=== PATIENT | male | born 1990 | race Hispanic/Latino ===

== ENCOUNTER 2019-09-21 21:36 | Inpatient (IN) | payer BC, OTHER ==
[~2019-09-21] VITALS: Ht 190.5 cm; Wt 151.5 kg
[2019-09-21] MEDS: SODIUM CHLORIDE 0.9% 1000ML 1,000 ML IV SCH ×4 (02:05→23:30)
[2019-09-21] MEDS ORDERED: KETOROLAC TROMETHAMINE 30 MG/ML VIAL IV STA (21:58)
--- NOTE | 2019-09-21 22:06 | Emergency Department Note ---
History of Present Illnes History of Present Illness Chief Complaint: left upper quadrant abd pain sudden onset History of Present Illness This is a 29 year old male . 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 Any updates have been documented here. Past Medical History Recent Fever: No Clinical Suspicion of Infectio: No New/Unexplained Change in Ment: No Past Medical History: Kidney Stones (6 years ago. hasn't had a proper doctor v rachel in several years) Other Surgery: retinal detachment repaired bilaterally Social History Smoking Cessation: Current every day smoker Counseling Performed: Yes Alcohol Use: Occasional Any Illegal Drug Use: No TB Exposure/Symptoms: No Physically hurt or threatened: No Other Any Pre-Existing Lines (PICC,: No Review of Systems ROS Narrative Unable to obtain ROS: Unable to obtain due to Review of Systems Constitutional: Reports no symptoms EENTM: Reports no symptoms Cardiovascular: Reports no symptoms Respiratory: Reports no symptoms Gastrointestinal: Reports as per HPI Genitourinary: Reports no symptoms Musculoskeletal: Reports no symptoms Integumentary: Reports no symptoms Neurological: Reports no symptoms Psychological: Reports no symptoms Endocrine: Reports no symptoms Hematological/Lymphatic: Reports no symptoms Review of other systems: All other systems negative Physical Exam Related Data Vital signs reviewed: Yes Physical Exam CONSTITUTIONAL Constitutional: Present well-developed, Present well-nourished, Present obese HENT HENT: Present normocephalic, Present atraumatic EYES Eyes: Reports PERRL, Reports conjunctivae normal, Reports EOM normal, Reports lids normal NECK Neck: Present ROM normal, Present supple PULMONARY Pulmonary: Present effort normal, Present breath sounds normal CARDIOVASCULAR Cardiovascular: Present regular rhythm, Present heart sounds normal, Present intact distal pulses, Present capillary refill normal, Present tachycardia GASTROINTESTINAL Abdominal: Present soft, Present bowel sounds normal, Present tender (mild luq to deep palpation pt obese difficult to obtain good pe on abdomen) GENITOURINARY SKIN Skin: Present warm, Present dry MUSCULOSKELETAL Musculoskeletal: Present ROM normal, Present edema NEUROLOGICAL Neurological: Present alert, Present oriented x 3, Present DTRs normal, Present no gross motor or sensory deficits PSYCHOLOGICAL Psychological: Present mood/affect normal, Present behavior normal, Present thought content normal, Present judgement normal Results Laboratory Laboratory glucose 315 k 5.5 but mod hemolysisi bicarb 27 normal. CBC WBC 20.5 elevated H/H 16/51 elevaed Lab results reviewed: Yes Laboratory comments ua glucose 500 mg/dl trace ketones protein 100mg/dl. nitrite and leukocyte esterase negative. Lactic acid 2.48 elevated repeat k 4.6 Imaging Imaging results reviewed: Yes Impressions 7 mm stone prox left urether with mod /severe hydroureteronephrosis edematous left kidney Assessment & Plan Medical Decision Making MDM wbc 20 with elevated lactate obsructing kidney stone prob pyleonehritis. admit for antibiotics and hydration . Insulin will be given to correct hyperglycemia. Case discussed in detail with both Dr. Gaston Bright and Dr Donte Ann including lab results and ct report Assessment & Plan Final Impression: (1) Pyelonephritis (2) Urethra, calculus Depart Disposition: ADMITTED QIAN QUINONES MD Sep 21, 2019 22:06
[2019-09-21] MEDS ORDERED: CEFEPIME 1GM/NS 0.9% 50 ML 50 ML IV STA (23:01)
--- NOTE | 2019-09-21 23:18 | Diagnostic Imaging Report ---
EXAM: CT Abdomen and Pelvis WITHOUT contrast INDICATION: ^rule kidney stones ^[id number] ^2 ^N COMPARISON: None. TECHNIQUE: Abdomen and pelvis were scanned utilizing a multidetector helical scanner from the lung base to the pubic symphysis without administration of IV contrast. Absence of intravenous contrast decreases sensitivity for detection of focal lesions and vascular pathology. Coronal and sagittal reformations were obtained. Routine protocol was performed. IV CONTRAST: None ORAL CONTRAST: None COMPLICATIONS: None RADIATION DOSE: Total DLP: 1030.62 mGy*cm Estimated effective dose: (DLP x 0.015 x size factor) mSv CTDIvol has been reviewed. It is below the limits set by the Radiation Protocol Committee (RPC). Dose modulation, iterative reconstruction, and/or weight based adjustment of the mA/kV was utilized to reduce the radiation dose to as low as reasonably achievable. FINDINGS: LINES and TUBES: None. LOWER THORAX: Unremarkable HEPATOBILIARY: Hepatic steatosis with focal fatty sparing in the gallbladder fossa. No biliary ductal dilation. GALLBLADDER: No radio-opaque stones or sludge. No wall thickening. SPLEEN: No splenomegaly. PANCREAS: No focal masses or ductal dilatation. ADRENALS: No adrenal nodules KIDNEYS/URETERS: 7 mm calculus in the proximal left ureter with resultant moderate to severe upstream hydroureteronephrosis and perinephric stranding. Left kidney is edematous. 2 punctate nonobstructive right intrarenal calculi. No right hydronephrosis. GI TRACT: No abnormal distention, wall thickening, or evidence of bowel obstruction. Appendix is normal. PELVIC ORGANS/BLADDER: Unremarkable. LYMPH NODES: No lymphadenopathy. VESSELS: Unremarkable. PERITONEUM / RETROPERITONEUM: No free air or fluid. BONES: Unremarkable. SOFT TISSUES: Unremarkable. IMPRESSION: 1. 7 mm calculus in the proximal left ureter with resultant moderate to severe upstream hydroureteronephrosis. Edematous left kidney. 2. Punctate nonobstructive right nephrolithiasis. 3. Hepatic steatosis. Signed by: Gaston Quiroz MD on 09/21/2019 11:14 PM
[2019-09-21] MEDS ORDERED: CLINDAMYCIN 300MG 50 ML IV ONE (23:29)
[2019-09-21] MEDS ORDERED: DEXTROSE 50% SYRINGE 50 ML IV PRN (23:30)
[2019-09-21] MEDS: CEFEPIME 1GM/NS 0.9% 50 ML 50 ML IV SCH (23:30)
--- OUTSIDE RECORDS SUMMARY | 2019-09-21 23:43 | XMS REPORT | Continuity of Care Document ---
Author Author [facility] Organization [facility] Address [address] [place] [address] Phone Unavailable Care Team Providers Care Professor Of Graphic Design Name Role Phone QIAN QUINONES Attjatin Unavailable Problems This patient has no known problems. Allergies, Adverse Reactions, Alerts This patient has no known allergies or adverse reactions. Medications This patient has no known medications. Procedures This patient has no known procedures. Results Test Description Test Time Test Comments Results Result Comments Source CT ABD/PEL WO CONTRAST-HOPD 2019-09-21 23:08:00 [place] [id number] Patient Name: PREM VANCE MR #: [id number] : 1990 Age/Sex: 29/M Req #: [id number] Adm Physician: Ordered by: QIAN QUINONES MD Report #: [id number] [facility] Room/Bed: Procedure: [id number] HOPD/CT ABD/PEL WO CONTRAST-HOPD Exam Date: 09/21/19 Exam Time: 2241 REPORT STATUS: Signed EXAM: CT Abdomen and Pelvis WITHOUT contrast INDICATION: rule kidney stones [id number] N COMPARISON: None. TECHNIQUE: Abdomen and pelvis were scanned utilizing a multidetector helical scanner from the lung base to the pubic symphysis without administration of IV contrast. Absence of intravenous contrast decreases sensitivity for detection of focal lesions and vascular pathology. Coronal and sagittal reformations were obtained. Routine protocol was performed. IV CONTRAST: None ORAL CONTRAST: None COMPLICATIONS: None RADIATION DOSE: Total DLP: 1030.62 mGy*cm Estimated effective dose: (DLP x 0.015 x size factor) mSv CTDIvol has been reviewed. It is below the limits set by the Radiation Protocol Committee (RPC). Dose modulation, iterative reconstruction, and/or weight based adjustment of the mA/kV was utilized to reduce the radiation dose to as low as reasonably achievable. FINDINGS: LINES and TUBES: None. LOWER THORAX: Unremarkable HEPATOBILIARY: Hepatic steatosis with focal fatty sparing in the gallbladder fossa. No biliary ductal dilation. GALLBLADDER: No radio-opaque stones or sludge. No wall thickening. SPLEEN: No splenomegaly. PANCREAS: No focal masses or ductal dilatation. ADRENALS: No adrenal nodules KIDNEYS/URETERS: 7 mm calculus in the proximal left ureter with resultant moderate to severe upstream hydroureteronephrosis and perinephric stranding. Left kidney is edematous. 2 punctate nonobstructive right intrarenal calculi. No right hydronephrosis. GI TRACT: No abnormal distention, wall thickening, or evidence of bowel obstruction. Appendix is normal. PELVIC ORGANS/BLADDER: Unremarkable. LYMPH NODES: No lymphadenopathy. VESSELS: Unremarkable. PERITONEUM / RETROPERITONEUM: No free air or fluid. BONES: Unremarkable. SOFT TISSUES: Unremarkable. IMPRESSION: 1. 7 mm calculus in the proximal left ureter with resultant moderate to severe upstream hydroureteronephrosis. Edematous left kidney. 2. Punctate nonobstructive right nephrolithiasis. 3. Hepatic steatosis. Signed by: Porter Patel MD on 09/21/2019 11:14 PM Dictated By: PORTER PATEL MD [id number] Transcribed By: ALEXI on 09/21/19 9411 COPY TO: QIAN QUINONES MD
[2019-09-22] VITALS (7 sets, daily range): BP systolic 128–177; BP diastolic 91–109
[2019-09-22] MEDS ORDERED: AMLODIPINE BESYLATE 5 MG TAB PO PRN (00:15)
[2019-09-22] MEDS: SODIUM CHLORIDE 0.9% 1000ML 1,000 ML IV SCH ×12 (01:00→18:06)
[2019-09-22] MEDS: MORPHINE SULFATE 2 MG/ML SYR 1ML IV PRN ×4 (02:05→22:56)
[2019-09-22] MEDS: HYDRALAZINE HCL 20 MG/ML VIAL IV PRN (02:05)
--- NOTE | 2019-09-22 03:00 | NUR ---
RECEIVED PATIENT FROM THE [facility] IN STABLE CONDITION, VOICES PAIN LEVEL IN LEFT FLANK AT A LEVEL OF 7. PATIENT WAS PREVIOUSLY MEDICATED ORDERED. IV FLUIDS ARE RUNNING AT ORDERED RATE, BED IS IN LOW POSITION, BOTH SIDE RAILS ARE UP, CALL LIGHT IS WITHIN EASY REACH, WILL CONTINUE TO MONITOR.
--- NOTE | 2019-09-22 04:06 | NUR ---
PAGED DR. FLORES REGARDING THE PATIENT'S CRITICAL LACTIC ACID LAB OF 2.7. AWAITING CALL BACK.
[2019-09-22] MEDS: KETOROLAC TROMETHAMINE 30 MG/ML VIAL IV PRN ×3 (04:12→19:28)
--- NOTE | 2019-09-22 04:46 | NUR ---
TALKED TO DR. FLORES REGARDING PATIENT'S CRITICAL LACTIC ACID LAB AND IS AWARE OF PATIENT'S STATUS.
--- NOTE | 2019-09-22 08:15 | NUR ---
The pt. c/o pain an was medicated for same.
[2019-09-22 08:35] LABS: BASOPHILS # (AUTO) 0.1 (0.0-0.1); BASOPHILS % 0.4 % (0.0-1.0); EOSINOPHILS # (AUTO) 0.4 (0.0-0.4); EOSINOPHILS % 2.7 % (0.0-6.0); HEMATOCRIT 44.5 % (38.2-49.6); HEMOGLOBIN 13.7 g/dL (14.0-18.0); LYMPHOCYTES # (AUTO) 3.1 (1.0-3.2); LYMPHOCYTES % 21.9 % (18.0-39.1); MEAN CORPUSCULAR HEMOGLOBIN 25.1 pg (28-32); MEAN CORPUSCULAR HGB CONC 30.8 g/dL (31-35); MEAN CORPUSCULAR VOLUME 81.5 fL (81-99); MONOCYTES # (AUTO) 1.2 (0.2-0.8); MONOCYTES % 8.8 % (4.4-11.3); NEUTROPHILS # (AUTO) 9.2 (2.1-6.9); NEUTROPHILS % 65.6 % (38.7-80.0); PLATELET COUNT 242 x10e3/uL (140-360); RED BLOOD COUNT 5.46 x10e6/uL (4.3-5.7); RED CELL DISTRIBUTION WIDTH 12.9 % (11.7-14.4)
[2019-09-22] MEDS: INSULIN REGULAR, HUMAN 100 UNIT/1 ML 3ML VIAL SQ SCH ×4 (08:41→21:35)
[2019-09-22 09:02] LABS: ALANINE AMINOTRANSFERASE 40 IU/L (0-55); ALBUMIN 3.6 g/dL (3.5-5.0); ALBUMIN/GLOBULIN RATIO 1.1 (0.8-2.0); ALKALINE PHOSPHATASE 71 IU/L (40-150); BLOOD UREA NITROGEN 13 mg/dL (7-26); BUN/CREATININE RATIO 13 (6-25); CALCIUM 8.6 mg/dL (8.4-10.2); CARBON DIOXIDE 24 mmol/L (22-29); CHLORIDE 102 mmol/L (98-107); CREATININE, SERUM 0.97 mg/dL (0.72-1.25); EST GLOMERULAR FILTRATION RATE > 60 ML/MIN (60-); GLUCOSE 222 mg/dL (74-118); SODIUM 136 mmol/L (136-145)
[2019-09-22] MEDS ORDERED: INSULIN GLARGINE 100 UNITS/ML VIAL SQ ONE (09:45)
--- NOTE | 2019-09-22 11:13 | Consultation ---
DATE OF CONSULTATION: 09/22/2019 Urology Consultation Consultation is called by Dr. Bright. CHIEF UROLOGIC COMPLAINT AND REASON FOR CONSULTATION: Kidney stone. HISTORY OF PRESENT ILLNESS: Mr. Mcnamara is a 29-year-old male with several week history of left-sided flank pain. He denied fevers. No chills. He states he had some indigestion and pain yesterday, for which he took aspirin/[place]. The patient states he has had a longstanding history of kidney stones, thinks he has passed several. PAST MEDICAL HISTORY: Kidney stones 6 years ago, undiagnosed diabetic. MEDICATIONS: Aspirin. ALLERGIES: NKDA. SOCIAL HISTORY: Denied smoking or drinking. FAMILY HISTORY: Denied urologic stones or malignancies. REVIEW OF SYSTEMS: Noncontributory, other than problems mentioned above 12-organ systems. PHYSICAL EXAMINATION: GENERAL: Obese male, in no acute distress. VITAL SIGNS: Currently temperature 98.1, pulse 88, respirations 22, and blood pressure 149/103. HEENT: Sclerae anicteric. NECK: Supple. BACK: Without costovertebral angle tenderness bilaterally currently. ABDOMEN: Soft. It is obese. It is nontender. It is nondistended. There is no palpable mass. No palpable hernias. No palpable adenopathy. : Normal male external genitalia. EXTREMITIES: No edema. NEURO: Moving all 4 extremities. PSYCH: Alert and mood appropriate. SKIN: Intact. Normal color. PERTINENT LABORATORY DATA: Sodium 136, potassium 4.0, chloride 102, bicarb 24, BUN 13, creatinine 0.97, and glucose 222. Hemoglobin 13, hematocrit 44, platelet count 242,000, and white blood cell count 14,000. A CT scan revealing a 7 mm left proximal ureteral stone with hydronephrosis and elevated lactic acid. IMPRESSION: 1. Left ureteral calculus. 2. Left hydronephrosis. 3. Obesity. 4. Malignant hypertension. 5. Undiagnosed diabetes. 6. Medically induced coagulopathy, on aspirin. PLAN: As the patient has not had a fever and urinalysis at the outpatient emergency room showed no whites and no reds. He does not have a left shift on his CBC. We will aggressively support the patient and hydrate, and hopefully place a stent tomorrow. Should the patient spike a fever or show signs of deterioration, he will need an emergent stent prior to . Thank you for allowing me to participate in the care of your patient. I will be happy to follow along with you. MD AKASH Zamora/MODL /[id number] cc: Gaston Bright MD
--- NOTE | 2019-09-22 12:17 | History and Physical ---
CHIEF COMPLAINT: Kidney stone on left side, pyelonephritis, and renal colic. HISTORY OF PRESENT ILLNESS: The patient is a 29-year-old male with kidney stone. The patient has a large kidney stone on the left side, obstructed. He also has renal colic and severe pain. He took some aspirin for discomfort. The patient had kidney stone approximately 6 years ago. He has not had any significant problems since and did not have any followup with any physician. The patient is otherwise stable. PAST MEDICAL HISTORY: Kidney stone, obesity. PAST SURGICAL HISTORY: Retinal detachment repair bilaterally. SOCIAL HISTORY: The patient is an every day smoker. Occasional alcohol, social drinker, but no recreational drugs. ALLERGIES: NO KNOWN ALLERGIES. HOME MEDICATIONS: None. PHYSICAL EXAMINATION: VITAL SIGNS: Temperature is 101, blood pressure 150/110, pulse rate 125, respirations 22. GENERAL: The patient is not in acute distress. He is awake. HEENT: Normocephalic, atraumatic. Anicteric. NECK: Supple grossly. PULMONARY: Diminished breath sounds. CARDIOVASCULAR: S1, S2. Tachycardia. ABDOMEN: Soft, obese, otherwise unremarkable anteriorly. He does have a left renal colic. NEUROLOGIC: No focal deficit. DIAGNOSTIC DATA: CT scan show 7 mm calculus in a proximal left ureter with resultant gkfykxoo-sb-iwhrka upstream hydroureteronephrosis and perinephric stranding with left kidney, which is edematous. There are two punctate nonobstructive right intrarenal calculi, but no hydronephrosis. LABORATORY DATA: WBC is 14, hemoglobin is 13.7, hematocrit 44, platelets is 242. Chemistry; sodium 136, potassium 4, chloride 102, bicarb 24, BUN 13, creatinine 0.9, glucose is 222. Lactic acid was 2.7-2.2. IMPRESSION: 1. Left renal colic associated with a 7 mm kidney stone, which will not pass. The patient had pain. He has hydroureteronephrosis. He had lactic acidosis. This is consistent with sepsis without shock. 2. Sepsis without shock with complicated urinary tract infection associated with left kidney stone with hydroureteronephrosis. 3. Pyelonephritis. As the above. PLAN: Continue with IV fluids. IV antibiotics. Urology consultation with Dr. Donte Ann. The patient will need intervention. In the meantime, place the patient on insulin for now. Glycohemoglobin A1c. Insulin sliding scale coverage. We will monitor the patient closely. Repeat lab work in the morning. Discussed with the patient at length. We will give the patient some clear liquid diet for now. We will monitor the patient closely. Repeat lab work. MD AYANA Farris/TONO /[id number]
[2019-09-22] MEDS: CEFEPIME 1GM/NS 0.9% 50 ML 50 ML IV SCH ×2 (12:20→23:40)
[2019-09-22] MEDS: INSULIN GLARGINE 100 UNITS/ML VIAL SQ SCH (21:35)
--- NOTE | 2019-09-22 21:35 | NUR ---
PATIENT IS RESTING IN BED IN STABLE CONDITION, NO SIGNS OF DISTRESS NOTED. PATIENT VOICES PAIN LEVEL IN LEFT FLANK AT A LEVEL OF 7 AND WAS PREVIOUSLY MEDICATED ORDERED. IV FLUIDS ARE RUNNING AT ORDERED RATE, BED IS IN LOW POSITION, BOTH SIDE RAILS ARE UP, CALL LIGHT IS WITHIN EASY REACH, WILL CONTINUE TO MONITOR.
[2019-09-23] VITALS (7 sets, daily range): BP systolic 123–153; BP diastolic 71–110
[2019-09-23] MEDS: SODIUM CHLORIDE 0.9% 1000ML 1,000 ML IV SCH ×3 (03:38→21:16)
[2019-09-23] MEDS: KETOROLAC TROMETHAMINE 30 MG/ML VIAL IV PRN ×3 (03:39→23:28)
[2019-09-23 05:35] LABS: BASOPHILS # (AUTO) 0.1 (0.0-0.1); BASOPHILS % 0.4 % (0.0-1.0); EOSINOPHILS # (AUTO) 0.4 (0.0-0.4); EOSINOPHILS % 3.6 % (0.0-6.0); HEMATOCRIT 43.2 % (38.2-49.6); HEMOGLOBIN 13.3 g/dL (14.0-18.0); LYMPHOCYTES # (AUTO) 3.3 (1.0-3.2); LYMPHOCYTES % 29.6 % (18.0-39.1); MEAN CORPUSCULAR HEMOGLOBIN 25.7 pg (28-32); MEAN CORPUSCULAR HGB CONC 30.8 g/dL (31-35); MEAN CORPUSCULAR VOLUME 83.6 fL (81-99); MONOCYTES % 8.5 % (4.4-11.3); NEUTROPHILS # (AUTO) 6.5 (2.1-6.9); NEUTROPHILS % 57.5 % (38.7-80.0); PLATELET COUNT 221 x10e3/uL (140-360); RED BLOOD COUNT 5.17 x10e6/uL (4.3-5.7); RED CELL DISTRIBUTION WIDTH 12.6 % (11.7-14.4)
[2019-09-23 06:21] LABS: ANION GAP 11.9 mmol/L (8-16); BLOOD UREA NITROGEN 8 mg/dL (7-26); BUN/CREATININE RATIO 10 (6-25); CALCIUM 8.6 mg/dL (8.4-10.2); CARBON DIOXIDE 26 mmol/L (22-29); CHLORIDE 101 mmol/L (98-107); CREATININE, SERUM 0.77 mg/dL (0.72-1.25); EST GLOMERULAR FILTRATION RATE > 60 ML/MIN (60-); GLUCOSE 179 mg/dL (74-118); POTASSIUM 3.9 mmol/L (3.5-5.1); SODIUM 135 mmol/L (136-145)
[2019-09-23] MEDS: INSULIN REGULAR, HUMAN 100 UNIT/1 ML 3ML VIAL SQ SCH ×4 (07:30→20:40)
[2019-09-23] MEDS: MORPHINE SULFATE 2 MG/ML SYR 1ML IV PRN ×3 (07:40→21:33)
[2019-09-23] MEDS: HYDRALAZINE HCL 20 MG/ML VIAL IV PRN (10:14)
[2019-09-23] MEDS: CEFEPIME 1GM/NS 0.9% 50 ML 50 ML IV SCH ×2 (10:30→23:46)
[2019-09-23] MEDS ORDERED: IOPAMIDOL 300MG/ML 50ML INFUS..BTL IV ONE (11:28)
--- NOTE | 2019-09-23 11:33 | NUR ---
Patient left the floor to OR
[2019-09-23] MEDS ORDERED: FENTANYL CITRATE/PF 100MCG/2 ML INJ ONE ×3 (13:19→21:38)
[2019-09-23 13:26] LABS: INR 0.92; PROTHROMBIN TIME 12.8 seconds (11.9-14.5)
--- NOTE | 2019-09-23 14:25 | NUR ---
Spoke to Dr. Ann, he said he was unable to place stent and patient will need to have a nephrostomy tube placed. Patient was updated on POC and is in agreement for nephrostomy tube placement
[2019-09-23] MEDS ORDERED: MIDAZOLAM HCL 2 MG/2 ML VIAL ONE ×2 (14:39→21:38)
[2019-09-23] MEDS ORDERED: SODIUM CHLORIDE 0.9% 250ML 250 ML ONE (14:47)
[2019-09-23] MEDS ORDERED: LIDOCAINE HCL 1% LOCAL INJ 20 ML VIAL ONE (14:47)
[2019-09-23] MEDS ORDERED: LORAZEPAM INJ 2 MG/ML VIAL ONE (16:13)
--- NOTE | 2019-09-23 16:46 | NUR ---
Patient is back to the floor from having a nephrostomy tube placed. Dressing is dry and intact, it is draining clear yellow/ bloody urine
[2019-09-23 17:43] LABS: HEMATOCRIT 48.8 % (38.2-49.6); HEMOGLOBIN 14.9 g/dL (14.0-18.0)
--- NOTE | 2019-09-23 19:24 | Operative Report ---
DATE OF PROCEDURE: 09/23/2019 SURGEON: Donte Ann MD PREOPERATIVE DIAGNOSIS: Left hydronephrosis. POSTOPERATIVE DIAGNOSIS: Left hydronephrosis. PROCEDURES: 1. Cystourethroscopy with right ureteral catheterization and right retrograde pyelogram (separate procedure for diagnosis of microscopic hematuria). 2. Cystourethroscopy with left ureteral catheterization and left retrograde pyelogram (separate procedure for diagnosis of hydronephrosis). 3. Supervision of fluoroscopy. 4. Interpretation of retrograde pyelography. ANESTHESIA: General. ESTIMATED BLOOD LOSS: Minimal. COMPLICATIONS: None. INDICATIONS: Mr. Mcnamara is a very pleasant 29-year-old male with a 7 mm proximal left ureteral calculus. He and I had a long discussion of alternatives, risks, benefits of doing nothing, shock, stent placement, percutaneous nephrostomy. He voiced understanding of the options, alternatives, risks, and benefits, and elects to proceed. PROCEDURE IN DETAIL: After informed consent was obtained, the patient was taken to the operative suite, placed supine on the operative table, underwent general anesthesia by the Anesthesia Service, and was placed in dorsal lithotomy position, and sterilely prepped and draped for cystoscopy. A 21-Namibian cystoscope was inserted per urethra. Normal urethra was noted. There was trilobar prostatic hypertrophy. Panendoscopy of the bladder revealed no tumors, no stones. Both ureteral orifices were in normal anatomic location and position; on the right was seen to efflux clear urine. Bilateral retrograde pyelogram was performed; the right was normal, left revealed a very dense obstruction with a 7 x 10 mm proximal ureteral calculus on the left side. Despite aggressive injection, I could not get any contrast to flow proximal to this. I attempted multiple times to pass with an failed with inability to obtain access during the procedure. Drained the bladder. The patient was awakened from anesthesia and transported to Radiology for left percutaneous nephrostomy. Supervision of fluoroscopy and interpretation of retrograde pyelography: I was present for the entire procedure and supervised the use of fluoroscopy. There was no radiologist present. Attention was turned towards the left and right ureteral with 5-Namibian open-ended catheter. Bilateral retrograde pyelogram was performed; the right was normal, left revealed a very dense obstruction in the proximal left ureter and was blind ending. MD AKASH Zamora/TONO /[id number]
[2019-09-23 20:41] LABS: HEMATOCRIT 46.1 % (38.2-49.6); HEMOGLOBIN 14.3 g/dL (14.0-18.0)
[2019-09-23] MEDS: INSULIN GLARGINE 100 UNITS/ML VIAL SQ SCH (20:50)
[2019-09-23] MEDS: ONDANSETRON HCL INJ 2MG/ML 2ML 2 MG/ML VIAL IV PRN (21:33)
[2019-09-24] VITALS (9 sets, daily range): BP systolic 138–164; BP diastolic 88–120
--- NOTE | 2019-09-24 00:10 | NUR ---
Patient c/o pain to left lower abd.10/23.received new medication orders.
[2019-09-24] MEDS: HYDROCODONE/APAP 10MG-325MG TAB PO PRN ×3 (00:12→22:54)
--- NOTE | 2019-09-24 00:43 | NUR ---
BP CHECKED AND NOTED 140/90 MMOF HG.
[2019-09-24] MEDS: MORPHINE SULFATE INJ 4 MG/ML INJ 1ML IV PRN ×4 (04:10→20:27)
[2019-09-24 05:00] LABS: BASOPHILS % 0.4 % (0.0-1.0); EOSINOPHILS # (AUTO) 0.2 (0.0-0.4); EOSINOPHILS % 1.8 % (0.0-6.0); HEMATOCRIT 43.5 % (38.2-49.6); HEMOGLOBIN 13.3 g/dL (14.0-18.0); LYMPHOCYTES # (AUTO) 3.2 (1.0-3.2); LYMPHOCYTES % 28.7 % (18.0-39.1); MEAN CORPUSCULAR HEMOGLOBIN 25.5 pg (28-32); MEAN CORPUSCULAR HGB CONC 30.6 g/dL (31-35); MEAN CORPUSCULAR VOLUME 83.5 fL (81-99); MONOCYTES % 9.1 % (4.4-11.3); NEUTROPHILS # (AUTO) 6.6 (2.1-6.9); NEUTROPHILS % 59.6 % (38.7-80.0); PLATELET COUNT 239 x10e3/uL (140-360); RED BLOOD COUNT 5.21 x10e6/uL (4.3-5.7); RED CELL DISTRIBUTION WIDTH 12.7 % (11.7-14.4)
[2019-09-24 05:19] LABS: ANION GAP 15.3 mmol/L (8-16); BLOOD UREA NITROGEN 12 mg/dL (7-26); BUN/CREATININE RATIO 15 (6-25); CALCIUM 9.1 mg/dL (8.4-10.2); CARBON DIOXIDE 25 mmol/L (22-29); CHLORIDE 102 mmol/L (98-107); CREATININE, SERUM 0.82 mg/dL (0.72-1.25); EST GLOMERULAR FILTRATION RATE > 60 ML/MIN (60-); GLUCOSE 155 mg/dL (74-118); POTASSIUM 4.3 mmol/L (3.5-5.1); SODIUM 138 mmol/L (136-145)
[2019-09-24] MEDS: SODIUM CHLORIDE 0.9% 1000ML 1,000 ML IV SCH (06:54)
--- NOTE | 2019-09-24 07:10 | NUR ---
Bed side shift report given to on coming Rn.stable condition.
[2019-09-24] MEDS: INSULIN REGULAR, HUMAN 100 UNIT/1 ML 3ML VIAL SQ SCH ×4 (08:00→20:31)
--- NOTE | 2019-09-24 08:29 | Diagnostic Imaging Report ---
PROCEDURE: Genitourinary catheter placement ` Procedural Personnel Attending physician(s): Evelyn Stacy MD Fellow physician(s): None Resident physician(s): None Advanced practice provider(s): None Pre-procedure diagnosis: Left ureteral obstruction Post-procedure diagnosis: Same Indication: Urinary obstruction Catheter(s) placed because the previous catheter(s) became dislodged within 30 days of placement (QCDR): No Additional clinical history: Obstructing left ureteral calculus with severe left hydronephrosis. Unsuccessful retrograde pyelogram earlier the same day. Complications: Bloody urine drainage was noted initially from the catheter. Following recovery period, drainage appears to be trending to be more clear. IMPRESSION: Left nephrostomy tube placement. Plan: PCN to gravity drainage. PROCEDURE SUMMARY - Target organ: Left habematolel kidney - Image-guided placement of genitourinary catheter(s) - Additional procedure(s): None PROCEDURE DETAILS: Pre-procedure Consent: Informed consent for the procedure including risks, benefits and alternatives was obtained and time-out was performed prior to the procedure. Preparation: The site was prepared and draped using maximal sterile barrier technique including cutaneous antisepsis. Anesthesia/sedation Level of anesthesia/sedation: Moderate sedation (conscious sedation) 2mg Versed, 100mcg fentanyl Anesthesia/sedation administered by: Independent trained observer under attending supervision with continuous monitoring of the patient?s level of consciousness and physiologic status Total intra-service sedation time (minutes): 30 Left genitourinary catheter placement Local anesthesia was administered. A needle was advanced into the renal collecting system under ultrasound and fluoroscopy guidance. A wire was advanced, the tract was serially dilated and a nephrostomy tube was placed . Contrast injection was performed. Genitourinary catheter placed: 10Fr Uresil Findings: Severe right hydronephrosis External catheter securement: Non-absorbable suture Additional genitourinary system intervention Genitourinary intervention: None Location of intervention: Not applicable Device used: Not applicable Description of intervention: Not applicable Post-intervention findings: Not applicable Contrast Contrast agent: Isovue 300 Contrast volume (mL): 15 Radiation Dose Fluoroscopy time (minutes): 1.6 Reference air kerma (mGy): 34.1 Additional Details Additional description of procedure: None Equipment details: None Specimens removed: None. A sample was not sent for analysis. Estimated blood loss (mL): Less than 10 Standardized report: [email or web address] Attestation Signer name: Evelyn Stacy MD I attest that I was present for the entire procedure. I reviewed the stored images and agree with the report as written. Signed by: Evelyn Stacy MD on 09/24/2019 8:25 AM
[2019-09-24] MEDS ORDERED: BISACODYL 10 MG SUPP PR PRN (10:15)
[2019-09-24] MEDS ORDERED: MAGNESIUM HYDROXIDE 30 ML UDC PO PRN (10:15)
[2019-09-24] MEDS: CEFEPIME 1GM/NS 0.9% 50 ML 50 ML IV SCH ×2 (10:30→22:53)
[2019-09-24] MEDS: SENNOSIDES 8.6 MG TAB PO SCH ×2 (13:00→17:06)
--- NOTE | 2019-09-24 14:29 | NUR ---
infectious disease consultation Patient seen and examined chart reviewed September 24, 2019 [id number]
[2019-09-24] MEDS: KETOROLAC TROMETHAMINE 30 MG/ML VIAL IV PRN (15:14)
--- NOTE | 2019-09-24 18:35 | Consultation ---
DATE OF CONSULTATION: REASON FOR CONSULTATION: UTI. HISTORY OF PRESENT ILLNESS: This is a 29-year-old male with history of kidney stone, comes in with the left-sided flank pain. There was no fever, no chills, came to emergency room, had kidney stones six years ago. PAST MEDICAL HISTORY: Denies. PAST SURGICAL HISTORY: Denies. ALLERGIES: NKA. SOCIAL HISTORY: Negative. No smoking drug abuse or abuse. FAMILY HISTORY: Otherwise unremarkable. The patient was admitted, underwent cystourethroscopy procedure by Dr. Ann. He is feeling better. Blood cultures, urine cultures still negative. White count when he first came was 14, came down to 11, hemoglobin 13. The patient is currently on cefepime. PHYSICAL EXAMINATION: GENERAL: He is currently alert, oriented. VITAL SIGNS: Stable, currently afebrile. HEENT: He is not icteric. NECK: Supple. CHEST: Clear. HEART: S1, S2. No murmurs. ABDOMEN: Soft. Bowel sounds present. EXTREMITIES: No edema. SKIN: No rash. IMPRESSION: Urinary tract infection, renal stone, negative cultures so far. Clinically, looking better, doing better. We can discharge home with Cipro 5 mg p.o. b.i.d. for 14 days, to finish 14 days. Follow up as outpatient. MD JUAN Paige/TONO /[id number]
[2019-09-24] MEDS: ONDANSETRON HCL INJ 2MG/ML 2ML 2 MG/ML VIAL IV PRN (20:25)
[2019-09-24] MEDS: INSULIN GLARGINE 100 UNITS/ML VIAL SQ SCH (20:32)
[2019-09-25] VITALS: BP 160/101
[2019-09-25] MEDS: KETOROLAC TROMETHAMINE 30 MG/ML VIAL IV PRN ×2 (00:33→08:39)
--- NOTE | 2019-09-25 01:04 | NUR ---
BLOOD COLORED URINE DRAINING IN THE NEPHROSTOMY BAG.PAIN MEDICATION GIVEN.
[2019-09-25] MEDS: SODIUM CHLORIDE 0.9% 1000ML 1,000 ML IV SCH ×2 (01:16→09:34)
[2019-09-25 04:00] VITALS: BP 140/75
[2019-09-25 05:14] LABS: BASOPHILS # (AUTO) 0.1 (0.0-0.1); BASOPHILS % 0.4 % (0.0-1.0); EOSINOPHILS # (AUTO) 0.3 (0.0-0.4); EOSINOPHILS % 2.3 % (0.0-6.0); HEMATOCRIT 45.1 % (38.2-49.6); HEMOGLOBIN 13.6 g/dL (14.0-18.0); LYMPHOCYTES # (AUTO) 3.7 (1.0-3.2); LYMPHOCYTES % 31.9 % (18.0-39.1); MEAN CORPUSCULAR HEMOGLOBIN 25.1 pg (28-32); MEAN CORPUSCULAR HGB CONC 30.2 g/dL (31-35); MEAN CORPUSCULAR VOLUME 83.2 fL (81-99); MONOCYTES % 8.5 % (4.4-11.3); NEUTROPHILS # (AUTO) 6.5 (2.1-6.9); NEUTROPHILS % 56.4 % (38.7-80.0); PLATELET COUNT 236 x10e3/uL (140-360); RED BLOOD COUNT 5.42 x10e6/uL (4.3-5.7); RED CELL DISTRIBUTION WIDTH 12.7 % (11.7-14.4)
[2019-09-25] MEDS: INSULIN REGULAR, HUMAN 100 UNIT/1 ML 3ML VIAL SQ SCH ×2 (07:30→11:30)
[2019-09-25] MEDS: MORPHINE SULFATE INJ 4 MG/ML INJ 1ML IV PRN (07:30)
--- NOTE | 2019-09-25 07:30 | NUR ---
PATIENT IS ALERT, AWAKE, AND IN STABLE CONDITION WITH NO S/S OF RESPIRATORY DISTRESS. PATIENT C/O LLQ PAIN 08/22. IV FLUIDS INFUSING. TELEMETRY APPLIED. CALL LIGHT IS WITHIN REACH, PATIENT INSTRUCTED TO CALL FOR ASSISTANCE NEEDED.
[2019-09-25 07:52] VITALS: BP 139/97
[2019-09-25] MEDS: SENNOSIDES 8.6 MG TAB PO SCH (08:07)
[2019-09-25 09:00] VITALS: BP 139/97
[2019-09-25] MEDS ORDERED: CIPRO500 MG PO (10:34)
[2019-09-25] MEDS ORDERED: CELEBREX100 MG PO (10:35)
[2019-09-25] MEDS ORDERED: TYLENOL WITH C1 EACH PO (10:35)
[2019-09-25] MEDS ORDERED: COLACE100 MG PO (10:36)
[2019-09-25] MEDS: CEFEPIME 1GM/NS 0.9% 50 ML 50 ML IV SCH (10:37)
[2019-09-25 11:33] VITALS: BP 141/98
[2019-09-25] MEDS: HYDROCODONE/APAP 10MG-325MG TAB PO PRN (11:47)
--- NOTE | 2019-09-25 12:15 | NUR ---
DIABETIC TEACHING COMPLETED WITH PATIENT ON ASSESSING BLOOD SUGAR AND ADMINISTERING INSULIN. RN DEMONSTRATED AND PROVIDED BG RESULT WHILE PATIENT OBSERVED. RN DEMONSTRATE HOW TO COLLECT INSULIN IN SYRING- PATIENT ADMINISTERED INSULIN TO HIMSELF AFTER DEMONSTRATION. EDUCATION MATERIAL WILL BE PROVIDED TO PATIENT.
[2019-09-25] MEDS ORDERED: SEVOFLURANE INHAL SOLN 250 ML PEN BTL INH ONE (13:36)
[2019-09-25] MEDS ORDERED: ONDANSETRON HCL INJ 2MG/ML 2ML 2 MG/ML VIAL IV ONE (13:36)
[2019-09-25] MEDS ORDERED: PROPOFOL IV EMULSION 10 MG/ML 20 ML VIAL IV ONE (13:36)
[2019-09-25] MEDS ORDERED: LIDOCAINE HCL 2% LOCAL INJ 5 ML SDV VIAL INJ ONE (13:36)
--- NOTE | 2019-09-25 13:55 | NUR ---
DISCHARGE HOME- PATIENT OFF THE UNIT AT 1335 PER WHEELCHAIR ACCOMPANIED BY PCT TO THE FRONT LOBBY. PATIENT IS IN STABLE CONDITION WITH NO S/S OF RESPIRATORY DISTRESS. NO PAIN VOICED. IV REMOVED WITH TIP INTACT. NEPHROSTOMY TUBING NOTED TO LEFT FLANK AREA; DRESSING IS C/D/I. DISCHARGE TEACHING, INSTRUCTIONS, AND MEDICATIONS GIVEN TO THE PATIENT. ALL PERSONAL ITEMS TAKEN WITH THE PATIENT. EDUCATION AND EDUCATION MATERIAL WERE PROVIDED TO THE PATIENT REGARDING DIABETES, INSULIN CHECKING AND ADMINISTRATION AND HOW TO EMPTY HIS NEPHROSTOMY DRAIN.
--- NOTE | 2019-09-25 17:34 | NUR ---
Nutrition Screen Note RD Recommendation for Physician: -Continue current diet as ordered Plan of Care: RD following, monitoring for tolerance and adequacy Nutrition reason for involvement: consult for diabetic diet education Primary Diagnose(s): kidney stone on left side, pyelonephritis PMH: kidney stones, obesity Ht: 75 in Wt:334 lb BMI: 41.7 kg/m2 IBW:[address] Assessment: (09/25/19) Chart reviewed. Labs and meds reviewed. Pt is a 29 year old male admitted with kidney stones on left side and pyelonephritis. Per chart, pt has a HgbA1c of 12.0%. Diabetic diet education was provided. Pt reports eating >50% of meals and no weight loss reported. No N/V/D/C or chewing/swallowing issues. Will continue to monitor. Current Diet: 1800 ADA Malnutrition Evaluation (09/25/19) The patient does not meet criteria for a specified degree of malnutrition at this time. Will re-evaluate at follow-up as appropriate. Diet Education Needs Assessment: (09/24) Diet education indicated Learner(s): pt Barriers: no barriers identified Cultural/Language Modifications: no cultural/language modifications Readiness: eager/acceptance Method: explanation/discussion/handout Topics: carbohydrate counting and reading the food label Understanding/Compliance: pt verbalized understanding Nutrition Care Level: low Signed: Anna Marie Gee, RD, LD
[2019-10-08] MEDS ORDERED: LANTUS 3ML100 UNITS/ SC (10:32)
[2019-10-08] MEDS ORDERED: OZEMPIC0.25 MG/0. SC (10:32)
== END 2019-09-25 13:37 | disposition home or self-care (01) | DRG 872 ==
LOC: FSED 21:45 → ERHOLD 23:27 → MED/SURG2 09-22 01:30
PROVIDERS: ADMIT Internal Medicine; ATTEND Internal Medicine
PROC: BT141ZZ Fluoroscopy of Kidneys, Ureters and Bladder using Low Osmolar Contrast (ICD-10-PCS; 2019-09-23)
PROC: 0T9130Z Drainage of Left Kidney with Drainage Device, Percutaneous Approach (ICD-10-PCS; principal; 2019-09-23 12:00)
DX: A41.9 Sepsis, unspecified organism (principal); N13.6 Pyonephrosis; D68.9 Coagulation defect, unspecified; D68.8 Other specified coagulation defects; E87.2 Acidosis; Z68.41 Body mass index [BMI] 40.0-44.9, adult; I10 Essential (primary) hypertension; Z87.442 Personal history of urinary calculi; F17.210 Nicotine dependence, cigarettes, uncomplicated; E66.9 Obesity, unspecified; E11.9 Type 2 diabetes mellitus without complications; N40.0 Benign prostatic hyperplasia without lower urinary tract symptoms; Z11.59 Encounter for screening for other viral diseases
CPT/HCPCS: 36415; 50430; 74176; 74420; 76942; 80048; 80053; 80076; 81003; 82948; 83036; 83605; 84443; 85014; 85018; 85025; 85610; 87040; 87086; 96361; 99284; C1758; C1769; J0360; J0692; J1815; J1885; J2001; J2060; J2250; J2270; J2405; J3010; J7030; J7050; U0002

== ENCOUNTER → 2019-10-11 | Day surgery (SDC) | payer BC, OTHER ==
[2019-10-08 11:28] LABS: ANION GAP 16.2 mmol/L (8-16); BLOOD UREA NITROGEN 12 mg/dL (7-26); BUN/CREATININE RATIO 14 (6-25); CALCIUM 9.3 mg/dL (8.4-10.2); CARBON DIOXIDE 21 mmol/L (22-29); CHLORIDE 105 mmol/L (98-107); CREATININE, SERUM 0.85 mg/dL (0.72-1.25); EST GLOMERULAR FILTRATION RATE > 60 ML/MIN (60-); GLUCOSE 138 mg/dL (74-118); POTASSIUM 4.2 mmol/L (3.5-5.1); SODIUM 138 mmol/L (136-145)
--- NOTE | 2019-10-08 11:56 | Diagnostic Imaging Report ---
Exam: KUB - 2 views Indication: Preoperative Comparison: CT abdomen and pelvis of 09/21/2019 Findings: 14 mm left proximal ureteral calculus. Left percutaneous nephrostomy tube in place. No additional radiographically apparent urinary calculi. Nonobstructive bowel gas pattern. No free air. No acute osseous injury. Impression: 14 mm left proximal ureteral calculus. Left percutaneous nephrostomy tube in place. Signed by: Evelyn Stacy MD on 10/08/2019 11:52 AM
[~2019-10-11] MED LIST: ACETAMINOPHEN 1000 MG/100 ML 100 ML IV ONE; CEFTRIAXONE SOD 1 GM VIAL ONE; CELEBREX100 MG PO; CIPRO500 MG PO; COLACE100 MG PO; FENTANYL CITRATE/PF 100MCG/2 ML INJ ONE; IOPAMIDOL 300MG/ML 50ML INFUS..BTL IV ONE; LANTUS 3ML100 UNITS/ SC; LANTUS 3ML100 UNITS/ SQ; LIDOCAINE HCL 2% LOCAL INJ 5 ML SDV VIAL INJ ONE; ONDANSETRON HCL INJ 2MG/ML 2ML 2 MG/ML VIAL ONE; OZEMPIC0.25 MG/0. SC; PROPOFOL IV EMULSION 10 MG/ML 20 ML VIAL ONE; SEVOFLURANE INHAL SOLN 250 ML PEN BTL ONE; TYLENOL WITH C1 EACH PO
[2019-10-11 15:35] VITALS: BP 133/87
--- NOTE | 2019-10-11 18:31 | Operative Report ---
DATE OF PROCEDURE: 10/11/2019 SURGEON: Donte Ann MD POSTOPERATIVE DIAGNOSIS: Left ureteral calculi. POSTOPERATIVE DIAGNOSIS: Left ureteral calculi. PROCEDURES: 1. Left nephrostogram. 2. Staged left extracorporeal shock wave lithotripsy. ANESTHESIA: General. ESTIMATED BLOOD LOSS: Minimal. COMPLICATIONS: None. INDICATIONS: Mr. Mcnamara is a very pleasant 29-year-old male with a nephrostomy, impacted and obstructed left ureteral calculus. He and I had a long discussion of alternatives, risks, and benefits of doing nothing, shock wave lithotripsy, ureteroscopy, percutaneous surgery, or open surgery versus options of alternatives, risks, and benefits and elected to proceed. PROCEDURE IN DETAIL: After informed consent was obtained, the patient was taken to the operative suite, place supine on the operating table, and underwent general anesthesia by the Anesthesia Service. Stone was localized in the X, Y, and Z planes. Nephrostogram was performed to confirm location of the stone. A total of 3000 shocks in maximum power setting of 7 were delivered to the stone. The patient tolerated the procedure well, transferred to recovery room in excellent condition. Interpretation of nephrostogram: I was present for the entire procedure and supervised fluoroscopy. There was no radiologist present. Contrast was injected through the nephrostomy tube revealing a very large 10 x 8 mm proximal ureteral calculus, proximal hydronephrosis. Nephrostomy in adequate position, no extravasation. Donte Ann MD ES/MODL /[id number]
== END | disposition home or self-care (01) ==
LOC: OR 10:01
PROVIDERS: ATTEND Urology
DX: N20.1 Calculus of ureter (principal); Z93.6 Other artificial openings of urinary tract status; N13.30 Unspecified hydronephrosis; E11.9 Type 2 diabetes mellitus without complications; F41.9 Anxiety disorder, unspecified; E66.01 Morbid (severe) obesity due to excess calories; F17.290 Nicotine dependence, other tobacco product, uncomplicated; Z01.810 Encounter for preprocedural cardiovascular examination; Z01.812 Encounter for preprocedural laboratory examination; Z01.818 Encounter for other preprocedural examination; Z11.59 Encounter for screening for other viral diseases; Z79.4 Long term (current) use of insulin; Z68.41 Body mass index [BMI] 40.0-44.9, adult
CPT/HCPCS: 36415 ×2; 50431; 50590; 74018; 80048; 82948; 93005; J0131; J0696; J2001; J2405; J2704; J3010; Q9967; U0002

== ENCOUNTER 2024-01-02 07:00 | Inpatient (IN) | payer BC, OTHER ==
[~2024-01-02] VITALS: Ht 190.5 cm; Wt 151.5 kg
[2024-01-02] VITALS (8 sets, daily range): BP systolic 131–143; BP diastolic 85–96; PULSE 82–94; RESP 17–18; TEMP 97.6–98.1; O2SAT 97–99
[~2024-01-02 07:00] MED LIST changes: -ACETAMINOPHEN 1000 MG/100 ML 100 ML IV ONE; -CEFTRIAXONE SOD 1 GM VIAL ONE; -FENTANYL CITRATE/PF 100MCG/2 ML INJ ONE; -IOPAMIDOL 300MG/ML 50ML INFUS..BTL IV ONE; -LIDOCAINE HCL 2% LOCAL INJ 5 ML SDV VIAL INJ ONE; -ONDANSETRON HCL INJ 2MG/ML 2ML 2 MG/ML VIAL ONE; -PROPOFOL IV EMULSION 10 MG/ML 20 ML VIAL ONE; -SEVOFLURANE INHAL SOLN 250 ML PEN BTL ONE
[2024-01-02 07:32] LABS: BASOPHILS # (AUTO) 0.1 (0.0-0.1); BASOPHILS % 0.6 % (0.0-1.0); EOSINOPHILS # (AUTO) 0.5 (0.0-0.4); EOSINOPHILS % 2.9 % (0.0-6.0); HEMATOCRIT 52.7 % (38.2-49.6); LYMPHOCYTES # (AUTO) 2.9 (1.0-3.2); LYMPHOCYTES % 15.8 % (18.0-39.1); MEAN CORPUSCULAR HEMOGLOBIN 26.5 pg (28-32); MEAN CORPUSCULAR HGB CONC 30.4 g/dL (31-35); MEAN CORPUSCULAR VOLUME 87.4 fL (81-99); MONOCYTES # (AUTO) 1.6 (0.2-0.8); MONOCYTES % 8.5 % (4.4-11.3); NEUTROPHILS # (AUTO) 13.3 (2.1-6.9); NEUTROPHILS % 71.6 % (38.7-80.0); PLATELET COUNT 277 x10e3/uL (140-360); RED BLOOD COUNT 6.03 x10e6/uL (4.3-5.7); RED CELL DISTRIBUTION WIDTH 13.6 % (11.7-14.4); WHITE BLOOD COUNT 18.54 x10e3/uL (4.8-10.8)
[2024-01-02 07:50] LABS: BILIRUBIN,URINE NEGATIVE (NEGATIVE); CLARITY,URINE CLEAR (CLEAR); COLOR,URINE YELLOW (YELLOW); GLUCOSE, URINE NEGATIVE (NEGATIVE); KETONES,URINE NEGATIVE (NEGATIVE); LEUKOCYTE ESTERASE ,URINE NEGATIVE (NEGATIVE); NITRITE,URINE NEGATIVE (NEGATIVE); PH,URINE 5.5 (5 - 7); PROTEIN,URINE DIPSTICK NEGATIVE (NEGATIVE); URINE UROBILINOGEN 0.2 mg/dL (0.2 - 1)
[2024-01-02 07:51] LABS: ALBUMIN 4.3 g/dL (3.5-5.0); ALBUMIN/GLOBULIN RATIO 1.3 (0.8-2.0); ANION GAP 14.9 mmol/L (8-16); BILIRUBIN,TOTAL 0.6 mg/dL (0.2-1.2); CALCIUM 9.5 mg/dL (8.4-10.2); CREATININE, SERUM 0.97 mg/dL (0.72-1.25); POTASSIUM 3.9 mmol/L (3.5-5.1); TOTAL PROTEIN 7.7 g/dL (6.5-8.1)
[2024-01-02 07:58] LABS: INR 0.89; PARTIAL THROMBOPLASTIN TIME 29.1 seconds (23.8-35.5); PROTHROMBIN TIME 12.6 seconds (11.9-14.5)
[2024-01-02 08:19] LABS: BACTERIA,URINE MODERATE /HPF; EPITHELIAL CELLS,URINE RARE /LPF; RBC,URINE 0-5 /HPF (0-5)
[2024-01-02] MEDS: KETOROLAC TROMETHAMINE 30 MG/ML VIAL IV STA (08:31)
[2024-01-02] MEDS ORDERED: SODIUM CHLORIDE FLUSH 10 ML SYR INJ PRN (11:45)
[2024-01-02] MEDS: CEFTRIAXONE 2 GM in SODIUM CHLORIDE 0.9% 100 ML IV ONE (12:23)
[2024-01-02] MEDS: SODIUM CHLORIDE 0.9% 1000ML 1,000 ML IV SCH (12:25)
[2024-01-02] MEDS: ONDANSETRON HCL INJ 2MG/ML 2ML 2 MG/ML VIAL IV PRN (12:30)
[2024-01-02] MEDS: Morphine 4mg INJECTION 4 MG/ML INJ IV PRN (12:30)
[2024-01-02] MEDS ORDERED: ACETAMINOPHEN 325 MG TAB PO PRN (13:30)
[2024-01-02] MEDS ORDERED: POLYETHYLENE GLYCOL 3350 17 GM PACK PO PRN (13:30)
[2024-01-02] MEDS ORDERED: HYDRALAZINE HCL 20 MG/ML VIAL IV PRN (13:30)
[2024-01-02] MEDS ORDERED: LISINOPRIL10 MG PO (13:53)
[2024-01-02] MEDS ORDERED: ALPRAZOLAM0.5 MG PO (13:53)
[2024-01-02] MEDS ORDERED: LEVEMIR100 UNIT/1 SC (13:53)
[2024-01-02] MEDS ORDERED: AMLODIPINE BESY10 MG PO (13:53)
[2024-01-02] MEDS: DOCUSATE SODIUM 100 MG CAP PO SCH (16:38)
[2024-01-02] MEDS ORDERED: INFLUENZA VIRUS VAC SPLIT INJ 0.5 ML SYR IM SCH (17:00)
[2024-01-02] MEDS: AMLODIPINE BESYLATE 10 MG TAB PO SCH (20:38)
[2024-01-02] MEDS ORDERED: LISINOPRIL 10 MG TAB PO SCH (21:00)
[2024-01-03] VITALS (7 sets, daily range): BP systolic 129–135; BP diastolic 74–98; PULSE 69–86; RESP 18–20; TEMP 97.3–98.6; O2SAT 96–100
[2024-01-03] MEDS ORDERED: DEXTROSE 50% SYRINGE 50 ML IV PRN (00:30)
[2024-01-03] MEDS: INSULIN GLARGINE 100 UNITS/ML VIAL SQ SCH (00:42)
[2024-01-03 05:47] LABS: BASOPHILS # (AUTO) 0.1 (0.0-0.1); BASOPHILS % 0.5 % (0.0-1.0); EOSINOPHILS # (AUTO) 0.6 (0.0-0.4); EOSINOPHILS % 4.9 % (0.0-6.0); HEMATOCRIT 46.4 % (38.2-49.6); HEMOGLOBIN 13.9 g/dL (14.0-18.0); LYMPHOCYTES # (AUTO) 3.1 (1.0-3.2); LYMPHOCYTES % 25.8 % (18.0-39.1); MEAN CORPUSCULAR HEMOGLOBIN 26.5 pg (28-32); MEAN CORPUSCULAR VOLUME 88.4 fL (81-99); MONOCYTES # (AUTO) 1.1 (0.2-0.8); MONOCYTES % 8.6 % (4.4-11.3); NEUTROPHILS # (AUTO) 7.3 (2.1-6.9); NEUTROPHILS % 59.7 % (38.7-80.0); PLATELET COUNT 232 x10e3/uL (140-360); RED BLOOD COUNT 5.25 x10e6/uL (4.3-5.7); RED CELL DISTRIBUTION WIDTH 13.8 % (11.7-14.4); WHITE BLOOD COUNT 12.16 x10e3/uL (4.8-10.8)
[2024-01-03 06:14] LABS: ALBUMIN 3.6 g/dL (3.5-5.0); ALBUMIN/GLOBULIN RATIO 1.2 (0.8-2.0); ANION GAP 13.1 mmol/L (8-16); BILIRUBIN,TOTAL 0.7 mg/dL (0.2-1.2); CALCIUM 8.9 mg/dL (8.4-10.2); CHOL/HDL RATIO 5.8 (3.9-4.7); CREATININE, SERUM 0.81 mg/dL (0.72-1.25); MAGNESIUM 1.7 MG/DL (1.3-2.1); PHOSPHORUS 4.4 MG/DL (2.3-4.7); POTASSIUM 4.1 mmol/L (3.5-5.1); TOTAL PROTEIN 6.6 g/dL (6.5-8.1)
[2024-01-03 06:35] LABS: FREE T4 (FREE THYROXINE) 0.97 ng/dL (0.8-1.8); THYROID STIMULATING HORMONE 2.021 uIU/mL (0.350-4.940)
[2024-01-03] MEDS: MAGNESIUM SULF 1GRAM/DEXTROSE 100 ML IV ONE (06:39)
[2024-01-03] MEDS: ALPRAZOLAM 0.5 MG TAB PO PRN (10:34)
== END 2024-01-03 17:20 | disposition left against medical advice (07) | DRG 872 ==
LOC: ER 07:28 → ERHOLD 11:37 → MED/SURG2 13:28
PROVIDERS: ADMIT Internal Medicine; ATTEND Internal Medicine
PROC: 3E0333Z Introduction of Anti-inflammatory into Peripheral Vein, Percutaneous Approach (ICD-10-PCS; principal; 2024-01-02)
DX: A41.9 Sepsis, unspecified organism (principal); N13.6 Pyonephrosis; E11.9 Type 2 diabetes mellitus without complications; I10 Essential (primary) hypertension; F41.9 Anxiety disorder, unspecified; H54.62 Unqualified visual loss, left eye, normal vision right eye; Z79.4 Long term (current) use of insulin; Z79.85 Long-term (current) use of injectable non-insulin antidiabetic drugs; Z87.442 Personal history of urinary calculi; Z90.5 Acquired absence of kidney; Z83.3 Family history of diabetes mellitus; Z82.49 Family history of ischemic heart disease and other diseases of the circulatory system
CPT/HCPCS: 36415; 74176; 80053; 80061; 81001; 82948; 83036; 83605; 83735; 84100; 84439; 84443; 85025; 85610; 85730; 87040; 87086; 87186; 94799; 99284; J0696; J1815; J1885; J2270; J2405; J3475; J7030; J7050

== ENCOUNTER 2024-05-06 21:11 | Inpatient (IN) | payer OTHER ==
[~2024-05-06] VITALS: Ht 190.5 cm; Wt 151.5 kg
[~2024-05-06 21:11] MED LIST changes: +ALPRAZOLAM0.5 MG PO; +AMLODIPINE BESY10 MG PO; +LEVEMIR100 UNIT/1 SC; +LISINOPRIL10 MG PO
[2024-05-06 21:41] LABS: BASOPHILS # (AUTO) 0.1 (0.0-0.1); BASOPHILS % 0.3 % (0.0-1.0); EOSINOPHILS # (AUTO) 0.1 (0.0-0.4); EOSINOPHILS % 0.4 % (0.0-6.0); HEMATOCRIT 48.4 % (38.2-49.6); HEMOGLOBIN 15.4 g/dL (14.0-18.0); LYMPHOCYTES # (AUTO) 2.7 (1.0-3.2); LYMPHOCYTES % 13.7 % (18.0-39.1); MEAN CORPUSCULAR HGB CONC 31.8 g/dL (31-35); MEAN CORPUSCULAR VOLUME 81.8 fL (81-99); MONOCYTES # (AUTO) 1.8 (0.2-0.8); MONOCYTES % 9.3 % (4.4-11.3); NEUTROPHILS # (AUTO) 14.7 (2.1-6.9); NEUTROPHILS % 75.8 % (38.7-80.0); PLATELET COUNT 282 x10e3/uL (140-360); RED BLOOD COUNT 5.92 x10e6/uL (4.3-5.7); RED CELL DISTRIBUTION WIDTH 13.2 % (11.7-14.4); WHITE BLOOD COUNT 19.42 x10e3/uL (4.8-10.8)
[2024-05-06 21:50] LABS: CLARITY,URINE SL CLOUDY (CLEAR); COLOR,URINE YELLOW (YELLOW)
[2024-05-06 21:51] LABS: BILIRUBIN,URINE NEGATIVE (NEGATIVE); GLUCOSE, URINE NEGATIVE (NEGATIVE); KETONES,URINE NEGATIVE (NEGATIVE); LEUKOCYTE ESTERASE ,URINE NEGATIVE (NEGATIVE); NITRITE,URINE NEGATIVE (NEGATIVE); PH,URINE 5.5 (5 - 7); PROTEIN,URINE DIPSTICK 1+ (NEGATIVE); URINE UROBILINOGEN 0.2 mg/dL (0.2 - 1)
[2024-05-06 22:00] LABS: ALBUMIN 4.3 g/dL (3.5-5.0); ALBUMIN/GLOBULIN RATIO 1.3 (0.8-2.0); ANION GAP 17.2 mmol/L (8-16); BILIRUBIN,TOTAL 0.8 mg/dL (0.2-1.2); CALCIUM 9.4 mg/dL (8.4-10.2); CREATININE, SERUM 1.32 mg/dL (0.72-1.25); POTASSIUM 4.2 mmol/L (3.5-5.1); TOTAL PROTEIN 7.6 g/dL (6.5-8.1)
[2024-05-06 22:13] LABS: RBC,URINE 0-5 /HPF (0-5)
[2024-05-06 22:14] LABS: BACTERIA,URINE MANY /HPF; EPITHELIAL CELLS,URINE FEW /LPF
[2024-05-06] MEDS: ACETAMINOPHEN 325 MG TAB PO STA (22:32)
[2024-05-06] MEDS: SODIUM CHLORIDE 0.9% 1000ML 1,000 ML IV STA ×2 (22:33)
[2024-05-06] MEDS: ONDANSETRON HCL INJ 2MG/ML 2ML 2 MG/ML VIAL IV STA (22:34)
[2024-05-06] MEDS: Morphine 4mg INJECTION 4 MG/ML INJ IV STA (22:34)
[2024-05-06] MEDS ORDERED: IOPAMIDOL 370 MG/ML 100 ML INFUS..BTL INJ ONE (23:09)
[2024-05-06 23:13] LABS: AMPHETAMINES SCREEN,URINE NEGATIVE (NEGATIVE); BENZODIAZEPINES SCREEN,URINE NEGATIVE (NEGATIVE); CANNABINOIDS SCREEN,URINE POSITIVE (NEGATIVE); COCAINE SCREEN,URINE NEGATIVE (NEGATIVE); METHADONE SCREEN, URINE NEGATIVE (NEGATIVE); OPIATES SCREEN,URINE NEGATIVE (NEGATIVE); PHENCYCLIDINE SCREEN,URINE NEGATIVE (NEGATIVE)
[2024-05-07] MEDS: KETOROLAC TROMETHAMINE 30 MG/ML VIAL IV STA (00:14)
[2024-05-07] MEDS ORDERED: LORAZEPAM INJ 2 MG/ML VIAL IV PRN (00:45)
[2024-05-07] MEDS: SODIUM CHLORIDE 0.9% 1000ML 1,000 ML IV SCH (01:00)
[2024-05-07 05:30] VITALS: TEMP 98.6
[2024-05-07] MEDS: ONDANSETRON HCL INJ 2MG/ML 2ML 2 MG/ML VIAL IV PRN (05:32)
[2024-05-07] MEDS: Morphine 2mg Syringe 2 MG/ML SYR IV PRN (05:32)
[2024-05-07] MEDS: KETOROLAC TROMETHAMINE 30 MG/ML VIAL IV PRN (11:26)
[2024-05-07 13:00] VITALS: PULSE 86; RESP 18
[2024-05-07] MEDS ORDERED: CARVEDILOL6.25 MG PO (14:07)
[2024-05-07] MEDS ORDERED: CLONIDINE HCL0.1 MG PO (14:07)
[2024-05-07] MEDS ORDERED: MOUNJARO2.5 MG/0.5 SQ (14:07)
[2024-05-07] MEDS ORDERED: LISINOPRIL40 MG PO (14:07)
[2024-05-07 14:10] VITALS: BP 151/108; PULSE 90; RESP 20; TEMP 98.4; O2SAT 99
[2024-05-07] MEDS ORDERED: ALPRAZOLAM 0.5 MG TAB PO SCH (17:00)
[2024-05-07 19:09] VITALS: BP 168/101; PULSE 83; RESP 18; TEMP 98.4; O2SAT 100
[2024-05-07] MEDS: INSULIN GLARGINE 100 UNITS/ML VIAL SQ SCH (19:19)
[2024-05-07] MEDS: CLONIDINE HCL 0.1 MG TAB PO SCH (19:26)
[2024-05-07] MEDS: AMLODIPINE BESYLATE 10 MG TAB PO SCH (19:27)
[2024-05-07] MEDS: CARVEDILOL 3.125 MG TAB PO SCH (19:27)
[2024-05-07] MEDS: LISINOPRIL 20 MG TAB PO SCH (19:28)
[2024-05-07 21:00] VITALS: BP 168/101; PULSE 83; RESP 18; TEMP 98.4; O2SAT 100
[2024-05-07] MEDS: ALPRAZOLAM 0.5 MG TAB PO SCH (21:21)
[2024-05-08 00:10] VITALS: BP 143/80; PULSE 72; RESP 16; TEMP 97.4; O2SAT 95
[2024-05-08 05:00] VITALS: BP 137/94; PULSE 69; RESP 16; TEMP 97.6; O2SAT 100
[2024-05-08 05:20] LABS: BASOPHILS # (AUTO) 0.1 (0.0-0.1); BASOPHILS % 0.5 % (0.0-1.0); EOSINOPHILS # (AUTO) 0.3 (0.0-0.4); EOSINOPHILS % 3.1 % (0.0-6.0); HEMATOCRIT 43.6 % (38.2-49.6); HEMOGLOBIN 13.3 g/dL (14.0-18.0); LYMPHOCYTES # (AUTO) 2.7 (1.0-3.2); LYMPHOCYTES % 24.2 % (18.0-39.1); MEAN CORPUSCULAR HGB CONC 30.5 g/dL (31-35); MEAN CORPUSCULAR VOLUME 85.3 fL (81-99); MONOCYTES # (AUTO) 1.2 (0.2-0.8); MONOCYTES % 10.8 % (4.4-11.3); NEUTROPHILS # (AUTO) 6.7 (2.1-6.9); NEUTROPHILS % 60.9 % (38.7-80.0); PLATELET COUNT 240 x10e3/uL (140-360); RED BLOOD COUNT 5.11 x10e6/uL (4.3-5.7); WHITE BLOOD COUNT 10.98 x10e3/uL (4.8-10.8)
[2024-05-08 06:05] LABS: ALBUMIN 3.4 g/dL (3.5-5.0); ALBUMIN/GLOBULIN RATIO 1.3 (0.8-2.0); ANION GAP 13.1 mmol/L (8-16); BILIRUBIN,TOTAL 0.8 mg/dL (0.2-1.2); CALCIUM 8.6 mg/dL (8.4-10.2); CREATININE, SERUM 0.84 mg/dL (0.72-1.25); POTASSIUM 4.1 mmol/L (3.5-5.1); TOTAL PROTEIN 6.1 g/dL (6.5-8.1)
[2024-05-08 09:14] VITALS: BP 135/88; PULSE 88; RESP 18; TEMP 97.7; O2SAT 97
[2024-05-08 09:15] VITALS: BP 135/88; PULSE 88; RESP 18; TEMP 97.7; O2SAT 97
[2024-05-08] MEDS ORDERED: CEFUROXIME250 MG PO (12:00)
[2024-05-08 12:35] VITALS: BP 163/94; PULSE 91; RESP 18; TEMP 98
== END 2024-05-08 13:23 | disposition home or self-care (01) | DRG 872 ==
LOC: ER 21:18 → ERHOLD 05-07 00:15 → MED/SURG 05-07 13:51
PROVIDERS: ADMIT Internal Medicine; ATTEND Internal Medicine
PROC: 3E0333Z Introduction of Anti-inflammatory into Peripheral Vein, Percutaneous Approach (ICD-10-PCS; principal; 2024-05-06)
DX: A41.9 Sepsis, unspecified organism (principal); N13.6 Pyonephrosis; Z68.41 Body mass index [BMI] 40.0-44.9, adult; E66.01 Morbid (severe) obesity due to excess calories; E11.9 Type 2 diabetes mellitus without complications; I10 Essential (primary) hypertension; N23 Unspecified renal colic; F41.9 Anxiety disorder, unspecified; H54.62 Unqualified visual loss, left eye, normal vision right eye; R63.0 Anorexia; Z79.4 Long term (current) use of insulin; Z79.85 Long-term (current) use of injectable non-insulin antidiabetic drugs; Z87.442 Personal history of urinary calculi; Z98.52 Vasectomy status; Z82.49 Family history of ischemic heart disease and other diseases of the circulatory system
CPT/HCPCS: 36415; 74177; 80053; 80307; 81001; 82948; 83605; 83690; 85025; 87040; 87086; 99284; J1885; J2270; J2405; J2543; J7030; Q9967

== ENCOUNTER 2024-08-22 22:48 | Observation (INO) | payer OTHER ==
[~2024-08-22] VITALS: Ht 190.5 cm; Wt 156.5 kg
[~2024-08-22 22:48] MED LIST changes: +CARVEDILOL6.25 MG PO; +CEFUROXIME250 MG PO; +CLONIDINE HCL0.1 MG PO; +LISINOPRIL40 MG PO; +MOUNJARO2.5 MG/0.5 SQ
[2024-08-22 23:07] VITALS: TEMP 98.5
[2024-08-22] MEDS: SODIUM CHLORIDE 0.9% 1000ML 1,000 ML IV ONE (23:55)
[2024-08-22] MEDS: ONDANSETRON HCL INJ 2MG/ML 2ML 2 MG/ML VIAL IV STA (23:56)
[2024-08-22] MEDS: FAMOTIDINE 20 MG/2 ML VIAL IV STA (23:56)
[2024-08-23] VITALS (7 sets, daily range): BP systolic 149–179; BP diastolic 93–123; PULSE 86–114; RESP 16–19; TEMP 97.5–99.5; O2SAT 97–98
[2024-08-23 00:33] LABS: BASOPHILS % 0.3 % (0.0-1.0); EOSINOPHILS % 1.4 % (0.0-6.0); LYMPHOCYTES % 17.1 % (18.0-39.1); MONOCYTES % 9.9 % (4.4-11.3); NEUTROPHILS % 70.8 % (38.7-80.0); RED CELL DISTRIBUTION WIDTH 13.4 % (11.7-14.4)
[2024-08-23] MEDS: SODIUM CHLORIDE 0.9% 1000ML 1,000 ML IV SCH ×2 (02:00→03:47)
[2024-08-23] MEDS: KETOROLAC TROMETHAMINE 30 MG/ML VIAL IV STA (02:22)
[2024-08-23] MEDS: ONDANSETRON HCL INJ 2MG/ML 2ML 2 MG/ML VIAL IV PRN (03:48)
[2024-08-23] MEDS: Morphine 2mg Syringe 2 MG/ML SYR IV PRN (03:48)
[2024-08-23] MEDS ORDERED: HYDRALAZINE HCL 20 MG/ML VIAL IV PRN (17:00)
[2024-08-23] MEDS ORDERED: SIMETHICONE 80 MG CHEW PO PRN (17:00)
[2024-08-23] MEDS ORDERED: ALBUTEROL/IPRATROPIUM 3 ML NEB NEB PRN (17:00)
[2024-08-23] MEDS ORDERED: POTASSIUM CHLORIDE 20 MEQ TAB CR PO PRN (17:00)
[2024-08-23] MEDS ORDERED: MELATONIN 5 MG TABLET PO PRN (17:00)
[2024-08-23] MEDS ORDERED: BENZONATATE 100 MG CAP PO PRN (17:00)
[2024-08-23] MEDS ORDERED: DEXTROSE 50% SYRINGE 50 ML IV PRN (17:00)
[2024-08-23] MEDS ORDERED: DIPHENHYDRAMINE HCL 25 MG CAP PO PRN (17:00)
[2024-08-23] MEDS ORDERED: DOCUSATE SODIUM 100 MG CAP PO PRN (17:00)
[2024-08-23] MEDS ORDERED: LIDOCAINE 4% PATCH TP PRN (17:00)
[2024-08-23] MEDS: ENOXAPARIN SOD INJ 40 MG/0.4 ML SYR SC SCH (17:50)
[2024-08-23] MEDS: ACETAMINOPHEN 325 MG TAB PO PRN (20:17)
[2024-08-24 01:12] VITALS: BP 151/93; PULSE 102; RESP 18; TEMP 98.8; O2SAT 98
[2024-08-24 03:36] VITALS: BP 151/74; PULSE 93; RESP 18; TEMP 97.6; O2SAT 97
[2024-08-24 05:55] LABS: BASOPHILS % 0.4 % (0.0-1.0); EOSINOPHILS % 3.3 % (0.0-6.0); LYMPHOCYTES % 17.7 % (18.0-39.1); MONOCYTES % 10.7 % (4.4-11.3); NEUTROPHILS % 67.4 % (38.7-80.0); RED CELL DISTRIBUTION WIDTH 13.2 % (11.7-14.4)
[2024-08-24 06:17] LABS: CHOL/HDL RATIO 4.1 (3.9-4.7); EST GLOMERULAR FILTRATION RATE 119.0 ML/MIN (>=60); LDL CHOLESTEROL 87.0 MG/DL (60-130)
[2024-08-24] MEDS ORDERED: PANTOPRAZOLE SOD 40 MG TABEC PO SCH (07:30)
[2024-08-24 08:00] VITALS: BP 150/98; PULSE 93; RESP 19; TEMP 98.8; O2SAT 99
[2024-08-24 10:23] VITALS: BP 150/98; PULSE 150; RESP 19; TEMP 98.8; O2SAT 93
== END 2024-08-24 10:30 | disposition left against medical advice (07) ==
LOC: FSED 22:58 → ERHOLD 08-23 02:06 → MED/SURG3 08-23 13:19
PROVIDERS: ADMIT Internal Medicine; ATTEND Internal Medicine
DX: A41.9 Sepsis, unspecified organism (principal); R10.13 Epigastric pain; Z53.29 Procedure and treatment not carried out because of patient's decision for other reasons; N13.30 Unspecified hydronephrosis; E11.9 Type 2 diabetes mellitus without complications; I10 Essential (primary) hypertension; K76.0 Fatty (change of) liver, not elsewhere classified; E66.01 Morbid (severe) obesity due to excess calories
CPT/HCPCS: 36415; 74176; 76705; 80053; 80061; 80307; 81003; 82948; 83690; 84484; 85025; 87040; 93005; 99284; G0378; J1308; J1650; J1885; J2270; J2405; J2470; J2543; J7030